=== PATIENT | female | born 1960 | race Caucasian/White ===

== ENCOUNTER → 2022-12-09 | Outpatient (CLI) | payer MEDICARE ==
--- NOTE | 2022-12-09 12:27 | MR ---
EXAMINATION TYPE: MR knee LT wo con DATE OF EXAM: 12/09/2022 COMPARISON: NONE HISTORY: LT KNEE PAIN and swelling for 6 weeks TECHNIQUE: Multiplanar, multisequence images of the knee is performed without IV contrast. FINDINGS: MEDIAL MENISCUS: Oblique increased signal posterior horn extends to articular surface. LATERAL MENISCUS: Anterior and posterior horns are intact without tear. CRUCIATE LIGAMENTS: The posterior cruciate ligament is intact and unremarkable. Anterior cruciate lig ament has marked increased signal but remains intact. COLLATERAL LIGAMENTS: The medial collateral ligament and lateral collateral ligament complex are inta ct. Mild fluid signal surrounds the medial collateral ligament. EXTENSOR MECHANISM: Visualized quadriceps and patellar tendons are intact. EFFUSION: Moderate to large size suprapatellar joint effusion. POPLITEAL CYST: Moderate size popliteal/serrano cyst measuring 5.2 cm image 28 with some ill-defined fl uid extending inferiorly. TRICOMPARTMENT SPACES: At least Moderate tricompartment joint space losses with mild to moderate tric ompartment spurring. CARTILAGE: Cartilaginous loss medial tibiofemoral and lateral tibiofemoral compartments. No significa nt chondromalacia patella. BONE MARROW SIGNAL: Areas of heterogeneous increased T2 signal involving the medial tibial proximal m etaphysis extending posteriorly. More focal areas of diminished signal abutting the articular surface medial tibial femoral compartment. OTHER: No additional significant abnormality is appreciated. IMPRESSION: 1. Oblique full thickness tear posterior horn medial meniscus. 2. Tricompartment degenerative changes that are moderate to severe medial tibiofemoral compartment as detailed above. In plate changes and extensive osseous edema at this level is identified. 3. Mild MCL sprain injury. 4. Moderate to large-sized suprapatellar joint effusion. 5. Moderate-sized leaking popliteal cyst.
== END | disposition home or self-care (01) ==
LOC: RADMRIMAIN 09:43
DX: S83.412A Sprain of medial collateral ligament of left knee, initial encounter (principal); M23.8X2 Other internal derangements of left knee; M17.12 Unilateral primary osteoarthritis, left knee; M71.22 Synovial cyst of popliteal space [Baker], left knee; M25.462 Effusion, left knee

== ENCOUNTER 2023-07-28 12:46 | Inpatient (IN) | payer MEDICARE ==
--- NOTE | 2023-07-28 13:15 | ED ---
General Adult HPI - General Source: patient, RN notes reviewed Mode of arrival: ambulatory Limitations: no limitations <Hector Nath - Last Filed: 07/28/23 13:14> - General Source: patient, RN notes reviewed Mode of arrival: ambulatory Limitations: no limitations <Magdi Ling - Last Filed: 07/28/23 18:24> - General Stated complaint: Leg pain Time Seen by Provider: 07/28/23 13:14 - History of Present Illness Initial comments: 63-year-old female presents emergency Department chief complaint of bilateral leg pain. Patient states she was started on a statin couple months ago she states she did not initially having issues states now she's having severe pain in her muscles and joints. 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 Patient states she is concerned that this medication is causing some issues. (Hector Nath) Patient is a pleasant 63-year-old female presenting to the emergency Department with complaints of leg pain. Onset of symptoms was close to week ago, worsening last 2 days. Patient has been on a statin for the past 2 months and just discontinued a couple days ago. Patient questions if she could have symptoms secondary to this or possibly Monteiro's cyst. No leg weakness. Patient states it has been difficult to walk last couple of days. No back pain. (Magdi Ling) - Related Data Allergies Allergy/AdvReac Type Severity Reaction Status Date / Time divalproex sodium Allergy Anaphylaxis Verified 07/28/23 13:14 [facility] Review of Systems ROS Other: All systems not noted in ROS Statement are negative. <Hector Ntah - Last Filed: 07/28/23 13:14> ROS Other: All systems not noted in ROS Statement are negative. Constitutional: Denies: fever Eyes: Denies: eye pain ENT: Denies: ear pain Respiratory: Denies: cough Cardiovascular: Denies: chest pain Endocrine: Denies: fatigue Gastrointestinal: Denies: abdominal pain, vomiting Genitourinary: Denies: dysuria Musculoskeletal: Reports: as per HPI. Denies: back pain Skin: Denies: rash Neurological: Denies: headache <Magdi Ling - Last Filed: 07/28/23 18:24> ROS Statement: Those systems with pertinent positive or pertinent negative responses have been documented in the HPI. General Exam <Hector Nath - Last Filed: 07/28/23 13:14> Limitations: no limitations General appearance: alert, in no apparent distress Head exam: Present: normocephalic Neck exam: Present: normal inspection Respiratory exam: Present: normal lung sounds bilaterally Cardiovascular Exam: Present: regular rate, normal rhythm GI/Abdominal exam: Present: soft. Absent: tenderness Extremities exam: Present: normal inspection. Absent: pedal edema, calf tenderness Back exam: Present: normal inspection. Absent: tenderness, vertebral tenderness Neurological exam: Present: alert, CN II-XII intact. Absent: motor sensory deficit Expanded Speech: Present: fluid speech Cranial nerves: EOM's Intact: Normal Sensory exam: Upper Extremity Light Touch: Normal, Lower Extremity Light Touch: Normal Motor strength exam: RUE: 5, LUE: 5, RLE: 5, LLE: 5 Eye Response: (4) open spontaneously Motor Response: (6) obeys commands Verbal Response: (5) oriented Psychiatric exam: Present: normal affect, normal mood Skin exam: Present: normal color <Magdi Ling - Last Filed: 07/28/23 18:24> - General Exam Comments Initial Comments: Visual Physical Exam Vital signs reviewed General: Well-appearing, nontoxic, no acute distress. Head: Normocephalic, atraumatic Eyes: PERRLA, EOMI ENT: Airway patent Chest: Nonlabored breathing Skin: No visual rash, normal skin tone Neuro: Alert and oriented 3 Musculoskeletal: No gross abnormalities (Hector Nath) Course Vital Signs 07/28/23 07/28/23 13:16 16:52 Temperature 98.8 F 98 F Pulse Rate 85 80 Respiratory 6 L 18 Rate Blood Pressure 125/84 135/87 O2 Sat by Pulse 97 98 Oximetry Medical Decision Making <Hector Nath - Last Filed: 07/28/23 13:14> - Lab Data Result diagrams: 07/28/23 13:58 07/28/23 13:58 <Magdi Ling - Last Filed: 07/28/23 18:24> - Medical Decision Making I performed a quick note portion of this chart signed Hector NAVAS (Hector Nath) Was pt. sent in by a medical professional or institution ([facility], [employer]AM[employer]ER, urgent care, hospital, or long-term...) When possible be specific @ -No Did you speak to anyone other than the patient for history (EMS, parent, family, police, friend...)? What history was obtained from this source @ -No Did you review nursing and triage notes (agree or disagree)? Why? @ -I reviewed and agree with nursing and triage notes Were old charts reviewed (outside hosp., previous admission, EMS record, old EKG, old radiological studies, urgent care reports/EKG's, long-term records)? Report findings @ -No old charts were reviewed Differential Diagnosis (chest pain, altered mental status, abdominal pain women, abdominal pain men, vaginal bleeding, weakness, fever, dyspnea, syncope, headache, dizziness, GI bleed, back pain, seizure, CVA, palpatations, mental health, musculoskeletal)? @ -Differential Weakness: Hypoglycemia, shock, sepsis, hyponatremia, anemia, infection, AR, ETOH, adverse medicine reaction, overdose, stroke, this is not meant to be an all-inclusive list. EKG interpreted by me (3pts min.). @ -As above X-rays interpreted by me (1pt min.). @ -None done CT interpreted by me (1pt min.). @ -None done U/S interpreted by me (1pt. min.). @ -None done What testing was considered but not performed or refused? (CT, X-rays, U/S, labs)? Why? @ -Additional imaging will be ordered including CT brain and lumbar spine What meds were considered but not given or refused? Why? @ -None Did you discuss the management of the patient with other professionals (professionals i.e. , PA, YARN EXAMINER, lab, RT, psych nurse, vp digital marketing social media and crm, patient clerical assistant, teacher, correctional officer captain, case resolution specialist)? Give summary @ -Case was discussed with Dr. Mayo, who will admit covering hospital call. He does request B12 level. Was smoking cessation discussed for >3mins.? @ -No Was critical care preformed (if so, how long)? @ -No Were there social determinants of health that impacted care today? How? (Homeles sness, low income, unemployed, alcoholism, drug addiction, transportation, low edu. Level, literacy, decrease access to med. care, long-term, rehab)? @ -No Was there de-escalation of care discussed even if they declined (Discuss DNR or withdrawal of care, Hospice)? DNR status @ -No What co-morbidities impacted this encounter? (DM, HTN, Smoking, COPD, CAD, Cancer, CVA, ARF, Chemo, Hep., AIDS, mental health diagnosis, sleep apnea, morbid obesity)? @ -None Was patient admitted / discharged? Hospital course, mention meds given and route, prescriptions, significant lab abnormalities, going to OR and other pertinent info. @ -Patient reevaluated and states she is actually having weakness and having difficulty walking. Patient has difficulty standing up and is only able to take 1 or 2 steps. Patient will be admitted with further testing and neurology consult. Admission orders written. Undiagnosed new problem with uncertain prognosis? @ -No Drug Therapy requiring intensive monitoring for toxicity (Heparin, Nitro, Insulin, Cardizem)? @ -No Were any procedures done? @ -No Diagnosis/symptom? @ -Bilateral leg weakness Acute, or Chronic, or Acute on Chronic? @ -Acute Uncomplicated (without systemic symptoms) or Complicated (systemic symptoms)? @ -default Side effects of treatment? @ -No Exacerbation, Progression, or Severe Exacerbation? @ -No Poses a threat to life or bodily function? How? (Chest pain, USA, AR, pneumonia, PE, COPD, DKA, ARF, appy, cholecystitis, CVA, Diverticulitis, Homicidal, Suicidal, threat to staff... and all critical care pts) @ -No (Magdi Ling) - Lab Data Lab Results 07/28/23 07/28/23 Range/Units 13:58 13:58 WBC 8.2 (3.8-10.6) k/uL RBC 4.80 (3.80-5.40) m/uL Hgb 14.2 (11.4-16.0) gm/dL Hct 42.3 (34.0-46.0) % MCV 88.1 (80.0-100.0) fL MCH 29.5 (25.0-35.0) pg MCHC 33.5 (31.0-37.0) g/dL RDW 13.3 (11.5-15.5) % Plt Count 259 (150-450) k/uL MPV 8.3 Neutrophils % 69 % Lymphocytes % 19 % Monocytes % 6 % Eosinophils % 3 % Basophils % 1 % Neutrophils # 5.7 (1.3-7.7) k/uL Lymphocytes # 1.6 (1.0-4.8) k/uL Monocytes # 0.5 (0-1.0) k/uL Eosinophils # 0.3 (0-0.7) k/uL Basophils # 0.1 (0-0.2) k/uL ESR 8 (0-30) mm/Hr Sodium 140 (137-145) mmol/L Potassium 4.8 (3.5-5.1) mmol/L Chloride 107 (98-107) mmol/L Carbon Dioxide 25 (22-30) mmol/L Anion Gap 8 mmol/L BUN 17 (7-17) mg/dL Creatinine 0.69 (0.52-1.04) mg/dL Est GFR (CKD-EPI)AfAm >90 (>60 ml/min/1.73 sqM) Est GFR (CKD-EPI)NonAf >90 (>60 ml/min/1.73 sqM) Glucose 111 H (74-99) mg/dL Calcium 9.8 (8.4-10.2) mg/dL Total Bilirubin 0.3 (0.2-1.3) mg/dL AST 29 (14-36) U/L ALT 24 (4-34) U/L Alkaline Phosphatase 124 (38-126) U/L Creatine Kinase 43 (30-135) U/L C-Reactive Protein 1.0 H (<1.0) mg/dL Total Protein 6.3 (6.3-8.2) g/dL Albumin 4.0 (3.5-5.0) g/dL Disposition <Hector Nath - Last Filed: 07/28/23 13:14> Is patient prescribed a controlled substance at d/c from ED?: No Time of Disposition: 18:24 <Magdi Ling - Last Filed: 07/28/23 18:24> Clinical Impression: Leg weakness Disposition: ADMITTED IP TO THIS HOSP Referrals: Jose Cruz MD [Primary Care Provider] - 1-2 days
[2023-07-28 14:10] LABS: Basophils # (A) 0.1 k/uL (0-0.2); Basophils % (A) 1 %; Eosinophils # (A) 0.3 k/uL (0-0.7); Eosinophils % (A) 3 %; HCT 42.3 % (34.0-46.0); HGB 14.2 gm/dL (11.4-16.0); Lymphocytes # (A) 1.6 k/uL (1.0-4.8); Lymphocytes % (A) 19 %; MCH 29.5 pg (25.0-35.0); MCHC 33.5 g/dL (31.0-37.0); MCV 88.1 fL (80.0-100.0); Mean Platelet Volume 8.3; Monocytes # (A) 0.5 k/uL (0-1.0); Monocytes % (A) 6 %; Neutrophils # (A) 5.7 k/uL (1.3-7.7); Neutrophils % (A) 69 %; Platelet Count 259 k/uL (150-450); RDW 13.3 % (11.5-15.5); WBC 8.2 k/uL (3.8-10.6)
[2023-07-28 14:41] LABS: Total Bilirubin 0.3 mg/dL (0.2-1.3)
[2023-07-28 14:43] LABS: ALT 24 U/L (4-34); AST 29 U/L (14-36); African American GFR (CKD) >90 (>60 ml/min/1.73 sqM); Alkaline Phosphatase 124 U/L (38-126); Anion Gap 8 mmol/L; Blood Urea Nitrogen 17 mg/dL (7-17); Calcium 9.8 mg/dL (8.4-10.2); Carbon Dioxide 25 mmol/L (22-30); Chloride 107 mmol/L (98-107); Creatine Kinase 43 U/L (30-135); Glucose 111 mg/dL (74-99); Non-African American GFR(CKD) >90 (>60 ml/min/1.73 sqM); Potassium 4.8 mmol/L (3.5-5.1); Sodium 140 mmol/L (137-145); Total Protein 6.3 g/dL (6.3-8.2)
--- NOTE | 2023-07-28 15:07 | US ---
EXAMINATION TYPE: US venous doppler duplex LE DATE OF EXAM: 07/28/2023 2:54 PM COMPARISON: NONE CLINICAL INDICATION: Female, 63 years old with history of pain; No hx of DVT. Patient takes baby aspi rin. Pain x 1 month, pain has gotten worse x 1 week. SIDE PERFORMED: Bilateral TECHNIQUE: The lower extremity deep venous system is examined utilizing real time linear array sonog jayna with graded compression, doppler sonography and color-flow sonography. VESSELS IMAGED: Common Femoral Vein Deep Femoral Vein Greater Saphenous Vein * Femoral Vein Popliteal Vein Small Saphenous Vein * Proximal Calf Veins (* superficial vessels) Right Leg: No evidence of DVT. *Anechoic area seen within popliteal fossa: 5.4 x 3.0 x 0.9 cm. Left Leg: No evidence of DVT. *Complex area sen within popliteal fossa: 5.1 x 2.2 x 2.0 cm. IMPRESSION: No evidence for deep vein thrombosis. Bilateral popliteal fossa cysts.
[2023-07-28 18:14] LABS: Erythrocyte Sedimentation Rate 8 mm/Hr (0-30)
[2023-07-28] MEDS ORDERED: HYDROmorphone 1 MG/ML 1 ML SYRINGE IVP PRN (18:25)
[2023-07-28] MEDS ORDERED: ACETAMINOPHEN TAB 325 MG TAB PO PRN (18:25)
[2023-07-28] MEDS ORDERED: NALOXONE 0.4 MG/ML 1 ML VIAL IV PRN (18:25)
[2023-07-28] MEDS ORDERED: ONDANSETRON 4 MG/2 ML VIAL IVP PRN (18:56)
--- NOTE | 2023-07-28 19:05 | P.HPIM ---
History of Present Illness H&P Date: 07/28/23 Patient is a 63-year-old female with PMH of Ehler Danlos syndrome, fatty acid oxidation disorder, sleep apnea, narcolepsy, small fiber neuropathy presents the ED for progressive bilateral lower extremity weakness and myalgia over the past month. Patient reports pain that initially started after an orthopedic procedure in her left knee. She was also started on a statin which she thought was the culprit behind her myalgias. Her symptoms have gotten so bad that she has difficulty ambulating due to the pain. She denies any bladder or bowel incontinence, saddle anesthesia. She reports neuropathic pain associated with her small fiber neuropathy. She has no other complaints. In the ED, she underwent extensive evaluation. CBC unremarkable. CMP glucose 111. CRP 1. CPK 43. Venous doppler negative. Patient is admitted for further workup and management. Pertinent positives and negatives as discussed in HPI, a complete review of systems was performed and all other systems are negative. General: non toxic, no distress, appears at stated age Derm: warm, dry Head: atraumatic, normocephalic, symmetric Eyes: EOMI, no lid lag, anicteric sclera Cardiovascular: S1S2 reg, no murmur Lungs: CTA bilateral, no rhonchi, no rales , no accessory muscle use Abdominal: soft, nontender to palpation, no guarding, no appreciable organomegaly Ext: no gross muscle atrophy, no edema, no contractures Neuro: No FND Psych: AOx3 Based on my assessment of this patient, this patient meets a high complexity level of care. Patient has an acute diagnosis of polyarthralgia that poses a threat to life or bodily function. Polyarthralgia: Unknown eitology. Rhabdomyolysis ruled out. Possibly related to her history of fatty acid oxidation disorser and Ehler Danlos? Good ROM at the hip and knee. She will need a rheumatalogic workup. May need to defer to her PCP since she is out of town. Fall precautions. PT and OT consulted. CT brain and L spine ordered. Neurology consulted. Chronic conditions: Ehler Danlos syndrome, fatty acid oxidation disorder, sleep apnea, narcolepsy, small fiber neuropathy CODE STATUS: FULL CODE. DVT Prophylaxis: Lovenox. GI Prophylaxis: Protonix. Designated medical POA if patient is not able to make medical decisions for themselves: I have reviewed the following informatics consultant notes: I have reviewed the results of the following tests: As above. I have ordered the following tests: As above. I have discussed the care of this patient with the following independent historian: I have independently interpreted the following test below: I have discussed the management of this patient with the following physician: Discussed with the ED provider in detail. Past Medical History Past Medical History: Asthma, GERD/Reflux Additional Past Medical History / Comment(s): arrythmia, bradycardia, neurocardiogenic syncope, connective tissue disorder History of Any Multi-Drug Resistant Organisms: None Reported Past Surgical History: Hysterectomy, Orthopedic Surgery Additional Past Surgical History / Comment(s): bladder suspension Past Psychological History: No Psychological Hx Reported Smoking Status: Never smoker Past Alcohol Use History: None Reported Past Drug Use History: None Reported Medications and Allergies Allergies Allergy/AdvReac Type Severity Reaction Status Date / Time divalproex sodium Allergy Anaphylaxis Verified 07/28/23 13:14 [facility] Physical Exam Vitals: Vital Signs Temp Pulse Resp BP Pulse Ox 07/28/23 18:46 97.8 F 76 16 107/74 96 07/28/23 16:52 98 F 80 18 135/87 98 07/28/23 13:16 98.8 F 85 6 L 125/84 97 Intake and Output 07/28/23 07/28/23 07/28/23 06:59 14:59 22:59 Other: Weight 95.254 kg Results CBC & Chem 7: 07/28/23 13:58 07/28/23 13:58 Labs: Abnormal Lab Results - Last 24 Hours (Table) 07/28/23 Range/Units 13:58 Glucose 111 H (74-99) mg/dL C-Reactive Protein 1.0 H (<1.0) mg/dL
[2023-07-28 19:10] VITALS: RESP 16
--- NOTE | 2023-07-28 20:04 | CT ---
EXAMINATION TYPE: CT brain wo con CT DLP: 1125.4 mGycm, Automated exposure control for dose reduction was used. DATE OF EXAM: 07/28/2023 7:36 PM COMPARISON: None. CLINICAL INDICATION:Female, 63 years old with history of weak, BILATERAL LEG PAIN, WEAKNESS TECHNIQUE: Brain: Axial CT images of the brain were obtained with coronal and sagittal reformats created and rev iewed. Contrast used: None. Oral contrast used: None. FINDINGS: Brain: Extra-axial spaces: No abnormal extra-axial fluid collections. Ventricular system: Within normal limits Cerebral parenchyma: No acute intraparenchymal hemorrhage or mass effect. The -white junction is well differentiated. Cerebellum: Unremarkable. Mass effect: No evidence of midline shift. Intracranial vasculature: unremarkable Soft tissues: Normal. Calvarium/osseous structures: No depressed skull fracture. Paranasal sinuses and mastoid air cells: Mild scattered paranasal sinus disease. Visualized orbits: Orbital contents are intact. IMPRESSION: No acute intracranial process.
--- NOTE | 2023-07-28 20:07 | CT ---
EXAMINATION TYPE: CT lumbar spine wo con CT DLP: 1434.6 mGycm, Automated exposure control for dose reduction was used. DATE OF EXAM: 07/28/2023 7:36 PM COMPARISON: None. CLINICAL INDICATION:Female, 63 years old with history of weak; PHH, BILATERAL LEG PAIN, WEAKNESS TECHNIQUE: Multiple axial images were obtained from the midportion of T11 through the sacroiliac bobbi nts. Soft tissue and bone windows in coronal and sagittal planes were obtained and reviewed. 3-D ref ormats of the bones were created on a separate workstation and submitted for review. Contrast used: mL of , none. Oral contrast used: none. FINDINGS: Alignment: There are 5 lumbar type vertebral bodies within normal alignment. There is grade 1 anterol isthesis of L4 and L5. No evidence for spondylolysis. Bone: No evidence of fracture is identified. Multilevel degeneration changes with osteophyte formati on disc space narrowing and facet joint arthropathy. Facet arthropathy is worse in the lower lumbar s pine. Discs: T12-L1: No spinal canal or neural foraminal stenosis is identified. L1-L2: No spinal canal or neural foraminal stenosis is identified. L2-L3: No spinal canal or neural foraminal stenosis is identified. L3-L4: No spinal canal or neural foraminal stenosis is identified. L4-L5: Grade 1 anterolisthesis with disc bulging and mild spinal canal and moderate left neural zhen inal stenosis. There is mild right neural foraminal stenosis. L5-S1: No spinal canal or neural foraminal stenosis is identified. Other: None IMPRESSION: 1. No evidence for spinal fracture. No evidence for significant spinal canal stenosis. 2. Mild degeneration changes of the vertebral bodies with severe facet arthropathy at L4-L5 and L5-S1 . 3. Grade 1 anterolisthesis of L4 and L5.
[2023-07-28] MEDS: traMADol 50 MG TAB PO PRN (22:42)
[2023-07-29] MEDS ORDERED: PANTOPRAZOLE 40 MG TABLET PO SCH (07:30)
[2023-07-29] MEDS ORDERED: lamoTRIgine 25 MG TAB PO SCH (09:00)
[2023-07-29] MEDS ORDERED: NAPROXEN 250 MG TAB PO SCH (09:00)
[2023-07-29] MEDS ORDERED: ENOXAPARIN 40 MG/0.4 ML SYRINGE SQ SCH (09:00)
[2023-07-29] MEDS: traMADol 50 MG TAB PO PRN (11:20)
--- NOTE | 2023-07-29 14:01 | P.CNNES ---
History of Present Illness Consult date: 07/29/23 Requesting physician: Magdi Ling Reason for Consult: leg weakness History of Present Illness: This is a 63-year-old woman with history of Andry Danlos syndrome (EDS), ?mitochondrial disordered and small peripheral neuropathy presented to the emergency department because of bilateral lower extremity weakness. Patient s tates it feels she is having bilateral lower extremity weakness with muscle pain and joint pain for last 2 months since she's been on statin. Patient states that she had extensive workup in the past and she had workup at 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 It seems that she was started the Court the patient by her primary team on statin and the last 2 months and ever since she's been having the muscle pain and joint pain and feels her legs are weak as a result. She has chronic left kn ee at issues from tendon which he had repaired and she feels she is having some issues with her right knee recently as well as right hip. Denies of any upper extremity weakness, disclose long, any difficulty getting words out. Denies any falls. Some of her workup during his hospital visit consisted of: ESR is 8. CRP is 1.0 CK levels for 3 Vitamin B-12 Folate is 40. Calcium, sodium, BUN creatinine within normal limits. CT of the head is reported as no acute intracranial process. As a review the CT head and agree with report. CT lumbar spine is reported as no evidence for spinal fracture. No evidence for significant spinal canal stenosis. Mild degeneration changes of the vertebral b odies with severe facet arthropathy at L4-L5 and L5-S1. Grade 1 at anterior lithiasis of L4 and L5. Venous duplex of the lowers are negative for DVT. Review of Systems The positive and negative as per HPI. Past Medical History Past Medical History: Asthma, GERD/Reflux Additional Past Medical History / Comment(s): arrythmia, bradycardia, neurocardiogenic syncope, Ehler's Danlos syndrome History of Any Multi-Drug Resistant Organisms: None Reported Past Surgical History: Hysterectomy, Orthopedic Surgery Additional Past Surgical History / Comment(s): bladder suspension, right shoulder, left knee surgeries Past Anesthesia/Blood Transfusion Reactions: No Reported Reaction, Family Hisory of Malignant Hyperthermia Additional Past Anesthesia/Blood Transfusion Reaction / Comment(s): Mother had malignant hypothermia and suffered minor strokes after surgeries Past Psychological History: No Psychological Hx Reported Smoking Status: Never smoker Past Alcohol Use History: None Reported Past Drug Use History: None Reported Medications and Allergies Home Medications Medication Instructions Recorded Confirmed Type Albuterol Inhaler [Ventolin Hfa 1 - 2 puff INHALATION RT-Q6H PRN 07/28/23 07/28/23 History Inhaler] Aspirin EC [Ecotrin Low Dose] 81 mg PO HS 07/28/23 07/28/23 History Baclofen 20 mg PO HS 07/28/23 07/28/23 History DULoxetine HCL [Cymbalta] 60 mg PO HS 07/28/23 07/28/23 History Gabapentin 900 mg PO HS 07/28/23 07/28/23 History Ketoconazole 2% Shampoo [Nizoral] 1 applic TOPICAL DIRECTED PRN 07/28/23 07/28/23 History Naproxen Sodium [Aleve] 220 mg PO BID 07/28/23 07/28/23 History Omeprazole 20 mg PO HS 07/28/23 07/28/23 History Primidone [Mysoline] 50 mg PO HS 07/28/23 07/28/23 History lamoTRIgine [LaMICtal] 50 mg PO BID 07/28/23 07/28/23 History HYDROcodone/APAP 5-325MG [[place] 1 tab PO Q4HR PRN 3 Days #18 tab 07/29/23 Rx 5-325] Allergies Allergy/AdvReac Type Severity Reaction Status Date / Time divalproex sodium Allergy Anaphylaxis Verified 07/28/23 20:39 [facility] Physical Examination - Vital Signs Vital Signs: Vital Signs Temp Pulse Pulse Resp BP BP Pulse Ox 07/29/23 07:46 98.6 F 71 16 121/81 95 07/29/23 02:00 98.5 F 79 16 107/68 97 07/28/23 22:00 79 16 07/28/23 20:00 98.4 F 79 16 129/84 98 07/28/23 18:46 97.8 F 76 16 107/74 96 07/28/23 16:52 98 F 80 18 135/87 98 Intake and Output 07/28/23 07/29/23 07/29/23 22:59 06:59 14:59 Intake Total 120 Balance 120 Intake: Oral 120 Other: # Voids 2 Weight 95.254 kg GENERAL: The patient is lying in bed and is not in acute distress. NEUROLOGICAL: Higher mental function: The patient is awake, alert, oriented to self, place and time. Patient is following commands. No aphasia and no neglect. Cranial nerves: The pupils are round, equal and reactive to light and accommodation. Visual guevara are full to confrontation throughout. Extraocular movement is intact no nystagmus is noted. Facial sensation is normal to touch throughout. The facial strength is normal throughout. Hearing is normal bilaterally to hand rub. Tongue is midline and moved [id number] without any difficulty. No dysarthria is noted. Shoulder shrug is normal bilaterally. Motor: Gait is antalgic and walking without any assistance. The strength is 5 over 5 throughout. Normal tone and bulk. Cerebellum: Normal finger to nose bilaterally. Sensation: Sensation is normal to touch throughout. Reflexes (right/left):2+ throughout. Plantars are downgoing bilaterally. Results - Laboratory Findings CBC and BMP: 07/28/23 13:58 07/28/23 13:58 Abnormal Lab Findings: Abnormal Labs 07/28/23 07/28/23 13:58 19:12 Glucose 111 H C-Reactive Protein 1.0 H Folate 40.00 H Assessment and Plan Assessment: This is a 63-year-old woman with history of Andry Danlos syndrome (EDS)/hypermoblile type, ?mitochondrial disordered and small peripheral neuropathy who feels she is having muscle pain and joint pain and with difficulty walking in the lowers since being on statin and the last 2 months. She feels somewhat better compared to initial presentation. Her CK level, ESR and CRP are within normal limits. Myalgia, arthralgia with difficulty walking and last 2 months: Possibly due to medication-induced (statin in which she was started during the same duration). Her CK and ESR level is within normal limits Plan: I recommend holding off the statin I ordered a TSH. Recommend orthopedic evaluation as outpatient of her right knee and right hip. Patient is on her home dose of gabapentin 900 mg daily at bedtime. Committee patient to follow-up with her neurologist within 1-2 weeks as an outpatient. She follows up with someone over [facility]. Can consider EMG with nerve conduction study of lowers as an outpatient. We'll defer the rest of the medical management to primary team The plan is discussed with patient and primary attending. Otherwise there is no additional neurological workup. Time with Patient: Greater than 30
[2023-07-29 14:16] VITALS: BP 142/83; PULSE 60; TEMP 98.2
--- NOTE | 2023-07-29 15:33 | P.DS ---
Providers Date of admission: 07/28/23 18:26 Expected date of discharge: 07/29/23 Attending physician: Tommy Fischer MD Consults: 07/28/23 18:25 Consult Physician Urgent Consulting Provider: Martin Quach Consult Reason/Comments: leg weakness Do you want consulting provider notified?: Yes Primary care physician: Jose Cruz MD Hospital Course: Patient is a 63-year-old female with PMH of Ehler Danlos syndrome, fatty acid oxidation disorder, sleep apnea, narcolepsy, small fiber neuropathy presents the ED for progressive bilateral lower extremity weakness and myalgia over the past month. Patient reports pain that initially started after an orthopedic procedure in her left knee. She was also started on a statin which she thought was the culprit behind her myalgias. Her symptoms have gotten so bad that she has difficulty ambulating due to the pain. She denies any bladder or bowel incontinence, saddle anesthesia. She reports neuropathic pain associated with her small fiber neuropathy. She has no other complaints. In the ED, she underwent extensive evaluation. CBC unremarkable. CMP glucose 111. CRP 1. CPK 43. Venous doppler negative. Patient is admitted for further workup and management. 07/29 Patient was seen and examined. She reports improvement in her LE soreness. Able to ambulate with PT and OT. Neurology consulted, recommends TSH, outpatient orthopedic surgery and neurology evaluation, hold statin. CT brain negative. CT L spine mild DJD vertebral bodies severe facet arthropathy L4L5 and L5 S1, grade 1 anterolistesis of L4 and L5. Patient is comfortable going home today. Plans for discharge home on [place] PRN for 3 days. General: non toxic, no distress, appears at stated age Derm: warm, dry Head: atraumatic, normocephalic, symmetric Eyes: EOMI, no lid lag, anicteric sclera Cardiovascular: S1S2 reg, no murmur Lungs: CTA bilateral, no rhonchi, no rales , no accessory muscle use Abdominal: soft, nontender to palpation, no guarding, no appreciable organomegaly Ext: no gross muscle atrophy, no edema, no contractures Neuro: No FND Psych: AOx3 Discharge Diagnosis: Polyarthralgia Chronic conditions: Ehler Danlos syndrome, fatty acid oxidation disorder, sleep apnea, narcolepsy, small fiber neuropathy This complex discharge took 35 minutes to complete. Patient Condition at Discharge: Stable Plan - Discharge Summary New Discharge Prescriptions: New HYDROcodone/APAP 5-325MG [[place] 5-325] 1 tab PO Q4HR PRN 3 Days #18 tab PRN Reason: Severe Breakthrough Pain Continue Gabapentin 900 mg PO HS Ketoconazole 2% Shampoo [Nizoral] 1 applic TOPICAL DIRECTED PRN PRN Reason: SCALP ISSUES Naproxen Sodium [Aleve] 220 mg PO BID Albuterol Inhaler [Ventolin Hfa Inhaler] 1 - 2 puff INHALATION RT-Q6H PRN PRN Reason: Shortness Of Breath Primidone [Mysoline] 50 mg PO HS Omeprazole 20 mg PO HS Aspirin EC [Ecotrin Low Dose] 81 mg PO HS DULoxetine HCL [Cymbalta] 60 mg PO HS Baclofen 20 mg PO HS lamoTRIgine [LaMICtal] 50 mg PO BID Discharge Medication List Albuterol Inhaler [Ventolin Hfa Inhaler] 1 - 2 puff INHALATION RT-Q6H PRN 07/28/23 [History] Aspirin EC [Ecotrin Low Dose] 81 mg PO HS 07/28/23 [History] Baclofen 20 mg PO HS 07/28/23 [History] DULoxetine HCL [Cymbalta] 60 mg PO HS 07/28/23 [History] Gabapentin 900 mg PO HS 07/28/23 [History] Ketoconazole 2% Shampoo [Nizoral] 1 applic TOPICAL DIRECTED PRN 07/28/23 [History] Naproxen Sodium [Aleve] 220 mg PO BID 07/28/23 [History] Omeprazole 20 mg PO HS 07/28/23 [History] Primidone [Mysoline] 50 mg PO HS 07/28/23 [History] lamoTRIgine [LaMICtal] 50 mg PO BID 07/28/23 [History] HYDROcodone/APAP 5-325MG [[place] 5-325] 1 tab PO Q4HR PRN 3 Days #18 tab 07/29/23 [Rx] Patient Instructions/Handouts: Hydrocodone/Acetaminophen (By mouth), Weakness (DC) Activity/Diet/Wound Care/Special Instructions: Follow up with your PCP for further workup. You may need rheumatology evaluation for myalgias. Discontinue statin. Discharge Disposition: HOME SELF-CARE
[2023-07-29] MEDS ORDERED: DULoxetine HCL 60 MG CAPSULE.DR PO SCH (21:00)
[2023-07-29] MEDS ORDERED: PRIMIDONE 50 MG TAB PO SCH (21:00)
[2023-07-29] MEDS ORDERED: BACLOFEN 10 MG TAB PO SCH (21:00)
[2023-07-29] MEDS ORDERED: ASPIRIN 81 MG PO SCH (21:00)
[2023-07-29] MEDS ORDERED: NON FORMULARY DRUG (Omeprazole [Omeprazole] 20 MG Capsule.Dr) PO SCH (21:00)
[2023-07-29] MEDS ORDERED: GABAPENTIN 300 MG CAP PO SCH (21:00)
== END 2023-07-29 16:41 | disposition home or self-care (01) | DRG 556 ==
LOC: EC 12:46 → 5NMEDONC 18:26
PROVIDERS: ADMIT Family Medicine; ATTEND Family Medicine
DX: M79.10 Myalgia, unspecified site (principal); Q79.60 Ehlers-Danlos syndrome, unspecified; E88.40 Mitochondrial metabolism disorder, unspecified; E71.318 Other disorders of fatty-acid oxidation; M13.0 Polyarthritis, unspecified; Z79.899 Other long term (current) drug therapy; Z90.710 Acquired absence of both cervix and uterus; Z88.8 Allergy status to other drugs, medicaments and biological substances; G47.30 Sleep apnea, unspecified; G47.419 Narcolepsy without cataplexy; J45.909 Unspecified asthma, uncomplicated; K21.9 Gastro-esophageal reflux disease without esophagitis; G47.411 Narcolepsy with cataplexy
CPT/HCPCS: 36415; 70450; 72131; 80053; 82550; 82607; 82746; 84443; 85025; 85652; 86140; 93970; 99285